=== PATIENT | female | born 1940 | race Caucasian/White ===

== ENCOUNTER → 2018-05-28 | Outpatient (CLI) | payer MEDICARE, OTHER ==
[~2018-05-28] MED LIST: ALBU6.7H INH; AMOX500T PO; APIX5TAB PO; AZEL137S4 NAS; CELE100C PO; CHOL200052 PO; CHOL500045 PO; CIPR250T2 PO; CYAN100063 IM; DIGO125T PO; DIGO250T PO; DILT240C64 PO; ESTR0.3T PO; ESTR0.5T3 PO; ESTR42.53 TD; FLUT16SP2 INH; FURO20TA3 PO; LACT1CAP35 PO; LEVO100T PO; LEVO137T25 PO; LORA0.5T PO; METO-93 PO; METO-95 PO; METO25TA91 PO; MONT10TA9 PO; MULT-208 PO; NYST15CR2 TD; NYST15CR2 TP; OMEP20CA9 PO; POTA20TA89 PO; PROM25SU34 RC; PROM25TA10 PO; REGADENOSON 0.4 MG/5 ML SYRINGE ONE; TORS20TA2 PO; ZOLP10TA PO; ZOLP10TA5 PO
== END | disposition home or self-care (01) ==
LOC: CFH 10:43
PROVIDERS: ATTEND Internal Medicine Cardiovascular Disease
DX: I08.3 Combined rheumatic disorders of mitral, aortic and tricuspid valves (principal); I10 Essential (primary) hypertension; I48.2 Chronic atrial fibrillation; K30 Functional dyspepsia
CPT/HCPCS: 78452; 93017; 93306; A9502; J2785

== ENCOUNTER → 2018-08-05 | Outpatient (CLI) | payer MEDICARE, OTHER ==
[~2018-08-05] MED LIST changes: -REGADENOSON 0.4 MG/5 ML SYRINGE ONE
== END | disposition home or self-care (01) ==
LOC: CARD 12:29
PROVIDERS: ATTEND Physician Assistant Medical
DX: J44.9 Chronic obstructive pulmonary disease, unspecified (principal)
CPT/HCPCS: 94060; 94726; 94729

== ENCOUNTER 2018-09-17 08:54 | Day surgery (SDC) | payer MEDICARE, OTHER ==
[2018-09-15 13:56] VITALS: BP 144/87
[2018-09-15 14:14] LABS: BASOPHILS % (AUTO) 0 % (0-1); EOSINOPHILS # (AUTO) 0.06 x10^3/uL (0-0.4); EOSINOPHILS % (AUTO) 1 % (1-7); LYMPHOCYTES # (AUTO) 1.56 x10^3/uL (1-3.4); LYMPHOCYTES % (AUTO) 26 % (22-44); MD NO; MEAN CORPUSCULAR HEMOGLOBIN 31.4 pg (27.0-34.8); MEAN CORPUSCULAR HGB CONC 34.2 g/dL (32.4-35.8); MEAN CORPUSCULAR VOLUME 91.6 fL (80-100); MONOCYTES # (AUTO) 0.45 x10^3/uL (0.2-0.8); MONOCYTES % (AUTO) 7 % (2-9); NEUTROPHILS # (AUTO) 3.98 x10^3/uL (1.8-6.8); NEUTROPHILS % (AUTO) 66 % (42-75); PLATELET COUNT 228 x10^3/uL (130-400); RED BLOOD COUNT 5.27 x10^6/uL (3.82-5.3); RED CELL DISTRIBUTION WIDTH 14.7 % (9.6-15.2)
[2018-09-15 14:22] LABS: INTERNATIONAL NORMALIZED RATIO 1.12 (0.93-1.1); PROTHROMBIN TIME 11.7 Seconds (9.6-11.5)
[2018-09-15 14:26] LABS: ANION GAP 7 mmol/L (5-15); CALCIUM 9.7 mg/dL (8.5-10.1); CHLORIDE 110 mmol/L (98-107); CREATININE 1.02 mg/dL (0.55-1.02)
[~2018-09-17] VITALS: Ht 172.7 cm; Wt 90.0 kg
[~2018-09-17 08:54] MED LIST changes: +BECL10.6 INH; +CELE200C PO; +ESOM20CA PO; +GABA-826 PO; +LISI-167 PO; +MULT-257 PO; +POTA20TA6 PO; +[UNRECOGNIZED DRUG - OTHER]
[2018-09-17] MEDS ORDERED: FLUC100T4 PO (09:09)
[2018-09-17] MEDS ORDERED: TRIAMCINOLONE TP (09:09)
[2018-09-17] MEDS ORDERED: DIPHENHYDRAMINE 50 MG/ML, 1ML IVPush ONE (09:30)
[2018-09-17] MEDS ORDERED: DIPHENHYDRAMINE 50 MG/ML, 1ML ONE (10:02)
[2018-09-17] MEDS ORDERED: HEPARIN 1,000 UNITS/ML, 10ML ONE (10:16)
[2018-09-17] MEDS ORDERED: LIDOCAINE 2%, 20ML ONE (10:16)
[2018-09-17] MEDS ORDERED: MIDAZOLAM 1 MG/ML, 2ML ONE (10:16)
[2018-09-17] MEDS ORDERED: FENTANYL PF 100 MCG/2ML ONE (10:16)
== END 2018-09-17 13:17 | disposition home or self-care (01) ==
LOC: CACL 08:54
PROVIDERS: ATTEND Internal Medicine Cardiovascular Disease
DX: I27.20 Pulmonary hypertension, unspecified (principal); I10 Essential (primary) hypertension; Z88.8 Allergy status to other drugs, medicaments and biological substances; Z87.891 Personal history of nicotine dependence
CPT/HCPCS: 36415; 80048; 85025; 85610; 93451; C1894; J1200; J1644; J2250; J3010